=== PATIENT | male | born 1935 | race Caucasian/White ===

== ENCOUNTER 2016-12-24 07:12 | Emergency (ER) | payer MEDICARE, MEDICAID ==
[~2016-12-24 07:12] MED LIST: ADULT LOW DOSE81 MG PO; ASA CHILDREN'S81 MG PO; ASCORBIC ACID500 MG PO; AUGMENTIN 875-1 EACH PO; AZITHROMYCIN250 MG PO; CARVEDILOL3.125 MG PO; CLOPIDOGREL75 MG PO; FLAGYL500 MG PO; FLOMAX DPS0.4 MG PO; HUMALOG 50100 UNITS/ SQ; HUMALOG100 UNIT/1 SQ; IRON325 MG PO; LAMISIL250 MG PO; LANTUS SQ; LANTUS100 UNITS/ SQ; LASIX DPS20 MG PO; LASIX40 M1 PO; LIPITOR80 MG PO; MAALOX DPS30 ML PO; MILK OF MAGNESI10 ML PO; NOVOLOG FL100 UNIT/1 SQ; NOVOLOG100 UNIT/2 SQ; OMEPRAZOLE20 MG PO; OMNICEF DPS300 MG PO; OXY IR DPS5 MG PO; PLAVIX75 MG PO; PRILOSEC DPS20 MG PO; RESTASIS1 EACH OU; SENOKOT S1 TAB PO; TYLENOL DPS325 MG PO; ULTRAM DPS50 MG PO; VITAMIN C500 M1 PO; XARELTO10 MG PO; ZESTRIL10 MG PO
--- NOTE | 2016-12-25 12:11 | ER ---
ADMIT: 12/24/2016 RM/LOC: ER [facility] MR#: [id number] [address] [address] VILLATOROSUZY QUINTANA [address] [place] [address] *CELL Emergency Room Report SEX: M AGE: 81 : 1935 DATE: HISTORY OF PRESENT ILLNESS: An 81-year-old gentleman, who became gradually confused this morning while he was out running and was found on the side of the road in his car confused. He does have a history of diabetes, insulin dependent. He was found to have a low glucose by squad, given a doughnut, felt much better, subsequently transferred here for evaluation. See T-sheet for history and physical. The patient is diagnosed with a diabetic reaction hypoglycemia, much improved by the time of his arrival in the hospital and subsequently discharged. DIAGNOSIS: Hypoglycemia diabetic reaction. PLAN: Follow up sometime this coming week if needed. Bharath Miller MD/ alida JOB #: [id number] CC: Bharath Miller MD, Attending Physician
== END 2016-12-24 08:10 | disposition home or self-care (01) ==
LOC: ER 07:12
DX: E11.649 Type 2 diabetes mellitus with hypoglycemia without coma (principal); Z87.891 Personal history of nicotine dependence; Z79.899 Other long term (current) drug therapy

== ENCOUNTER 2016-12-28 17:12 | Inpatient (IN) | payer MEDICARE, MEDICAID ==
[~2016-12-28] VITALS: Ht 160 cm; Wt 79.3 kg
--- NOTE | ~2016-12-28 | ECH ---
Transthoracic Echocardiography Report (TTE) Demographics Patient Name SUZY VILLATORO Date of Study 12/29/2016 Patient Number [id number] Visit Number [id number] Date of 1935 Room Number 512 Accession Number [id number] Gender Male Age 81 year(s) Referring Jamisonjudy Nelsonsean Melba Lap Cutter Truer Operator Ladan Arguello Physician [facility] Sai Rider Physician Interpreting Wale [place] MD Area Representative Physician Bang Milligan MD Supervising Ordering Physician Sai Rider MD/MLP Nurse Stress Country Sales Manager Conclusions Contractility Score Summary Normal Left Ventricular contractility was noted. Summary Technically adequate exam. The estimated left ventricular ejection fraction is 55%. Diastolic assessment reveals Grade I diastolic dysfunction. There is mild aortic regurgitation by color Doppler. Procedure Type of Study TTE procedure:Echo Complete SF. Procedure Date Date: 12/29/2016 Start: 11:07 AM Technical Quality: Adequate visualization Indications:Elevated Troponin, Coronary artery disease, Diabetes, Hypertension and History of CABG. Appropriate Use Criteria: 9 Height: 63 inches Weight: 167 pounds BSA: 1.79 m Rhythm: Within normal limits HR: 72 bpm BP: 142/80 mmHg M-Mode/2D Measurements LV Diastolic Dimension: 4.71 cm LV Systolic Dimension: 3.68 cm LV Septum Diastolic: 0.87 cm LV PW Diastolic: 0.83 cm AO Root Dimension: 2.41 cm Cardiac Output: 3.07 l/min LA Dimension: 3.88 cm Cardiac Index: 1.72 l/min*m RV Diastolic Dimension: 3.89 cm LA volume index: 27 ml/m LVOT: 1.65 cm LVOT VTI: 19.96 cm RV Base: 3 cm LV Stroke volume: 42.66 ml RV Mid: 2 cm LV Stroke volume index: 23.83 ml/m TAPSE: 2.2 cm TDI-S': 12 cm/s Doppler Measurements AV Peak Velocity: 1.2 m/s MV Peak E-Wave: 0.74 m/s AV Peak Gradient: 5.76 mmHg MV Peak A-Wave: 0.83 m/s AV Mean Gradient: 3.34 mmHg MV E/A Ratio: 0.88 LVOT Peak Velocity: 1.01 m/s MV P1/2t: 50.9 msec AV Area (Continuity):1.86 cm AV P1/2t: 512 msec MV Deceleration Time: 157.5 msec TR Velocity:2.4 m/s MV Area (PHT): 4.32 cm TR Gradient:23.04 mmHg PV Peak Velocity: 0.97 m/s Estimated RAP:5 mmHg PV Peak Gradient: 3.73 mmHg Estimated RVSP: 28 mmHg Estimated PASP: 28.04 mmHg E' Septal Velocity: 0.07 m/s A' Septal Velocity: 0.1 m/s E' Lateral Velocity: 0.12 m/s A' Lateral Velocity: 0.09 m/s RA Area: 15.19 cm Findings Left Ventricle Normal left ventricle size and function. Diastolic assessment reveals Grade I diastolic dysfunction. Right Ventricle Normal right ventricle structure and function. Left Atrium Normal left atrial size. Right Atrium Normal right atrial size. Mitral Valve Normal mitral valve structure and function. Mild mitral regurgitation by color Doppler. Aortic Valve The aortic valve is mildly sclerotic. There is mild aortic regurgitation by color Doppler. Tricuspid Valve Normal tricuspid valve structure and function. Mild tricuspid regurgitation by color Doppler. Normal pulmonary pressures. Pulmonic Valve The pulmonic valve is not well visualized. Pericardial Effusion No evidence of pericardial effusion. Miscellaneous Visualized portions of the aortic root and ascending aorta appear normal in size. Pleural Effusion No evidence of pleural effusion. Contractility Score LV regional wall motion:(0-Non visualized 1-Normal 2-Hypokinesis 3-Akinesis 4-Dyskinesis 5-Aneurysm) Signature
--- NOTE | 2016-12-31 12:39 | ER ---
ADMIT: 12/28/2016 RM/LOC: 512 [facility] MR#: [id number] 2620 [facility] [address] [place] [address] SUZY VILLATORO [address] [place] [address] Emergency Room Report SEX: M AGE: 81 : 1935 DATE: 12/28/2016 ADDENDUM: An 81-year-old male, found down by his family. Evidently, he lives by himself. EMS was called. There was a question of carbon monoxide detectors going off when EMS was there. His level here was 4.2, which is a little elevated. He is not a smoker. He has multiple other medical problems. Cardiac disease, diabetes, hypertension, hyperlipidemia. He was here a couple of days ago with a low blood sugar. His blood sugar in the field was 120. He has also had a bypass in the past as well. At this time, his lab is otherwise negative. We did CT his head, negative. Chest x-ray was negative. White count is up a little at 13.2. Chemistry is negative. The one finding that we did find is that his urine looked to be infected. 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 At this time, I spoke with Dr. Germain. She will admit him since we are admitting him as a UTI and syncopal episode with altered mental status. He will be admitted for that, but since he has a known infection, we will add the sepsis protocol which just mainly entails adding a lactic and starting IV antibiotics on him with Levaquin 750 IV down here. His MAP has been well above 65 and he will continue to be evaluated. He actually seems to be clearing more and more while he is here, though I thought he was a little bit confused initially when he came in. CONDITION ON DISCHARGE: Serious, but stable. Ryan Tuttle MD/ alida JOB #: [id number] CC: Tereso Gibbs MD, Attending Physician Tereso Gibbs MD, Family Physician
[2016-12-31] MEDS ORDERED: CARVEDILOL3.125 MG PO (20:41)
[2016-12-31] MEDS ORDERED: ZESTRIL DPS2.5 MG PO (20:41)
[2016-12-31] MEDS ORDERED: LASIX DPS20 MG PO (20:41)
[2016-12-31] MEDS ORDERED: TOUJEO SOL300 UNIT/1 SQ (20:41)
[2016-12-31] MEDS ORDERED: NEURONTIN DPS300 MG PO (20:41)
[2016-12-31] MEDS ORDERED: NOVOLOG100 UNIT/2 SQ (20:42)
[2016-12-31] MEDS ORDERED: ASCORBIC ACID500 MG PO (20:42)
[2016-12-31] MEDS ORDERED: FLOMAX DPS0.4 MG PO (20:42)
[2016-12-31] MEDS ORDERED: PLAVIX75 MG PO (20:42)
[2016-12-31] MEDS ORDERED: PRILOSEC DPS20 MG PO (20:43)
[2016-12-31] MEDS ORDERED: FEOSOL-DPS325 MG PO (20:43)
[2016-12-31] MEDS ORDERED: LIPITOR80 MG PO (20:44)
[2016-12-31] MEDS ORDERED: LIPITOR40 MG PO (20:44)
[2016-12-31] MEDS ORDERED: LEVAQUIN DPS500 MG PO (20:45)
--- NOTE | 2017-01-05 13:25 | HP ---
ADMIT: 12/28/2016 RM/LOC: 512 [facility] MR#: [id number] [address] [address] SUZY VILLATORO [address] [place] [address] History and Physical SEX: M AGE: 81 : 1935 DATE OF SERVICE: CHIEF COMPLAINT: Confusion. HISTORY OF PRESENT ILLNESS: The patient is an 81-year-old, male, who was admitted through the emergency room with confusion. It sounds like he has been running some errands and got back home and decided to leave his car out and clean out the garage. There were some pretty strong fumes from some power steering fluid that was leaking and he started feeling dizzy as he was cleaning the garage. He ended up crawling around to the front as he felt too dizzy to walk and the door from the garage to the house was locked. He was on his way to the front door, that his daughter and ended up finding him. He does live alone, nobody else had been in the house or the garage with him prior to this. There was some concern about possible carbon monoxide poisoning when the ambulance came to pick him up, and he did have just a very mildly elevated carboxyhemoglobin level. He thinks the episode was more associated with some fumes he was smelling though. He said he has been getting more dizzy off and on though recently. Had a check up with Dr. Gibbs last week, and he has been doing his insulin as scheduled, but says the sugars this week had been fine without any significant lows. The highest he has had is 226, but usually it is in the one teens to 120s. He denies any chest pain or feeling short of breath or diaphoretic with this episode. Has had a recent coronary artery bypass grafting about a year and half ago, but has had no issues with his heart since then. He has not been feeling sick otherwise. Denies having any dysuria or flank pain. No fevers or chills or other illnesses recently. PAST MEDICAL HISTORY: The patient has type 2 diabetes and is insulin dependent, complicated by diabetic peripheral neuropathy and neuropathic pain. He also has coronary artery disease and has had coronary artery bypass grafting. He has hyperlipidemia, hypertension, gastroesophageal reflux, and anemia. No prior history of significant renal disease. Has a history of osteoarthritis with right total knee arthroplasty. Has had some issues with mildly elevated postvoid residuals and urinary retention. Also, has had some falls in the past. MEDICATIONS: 1. Atorvastatin 80 mg at bedtime. 2. Gabapentin 300 mg b.i.d. 3. Lisinopril 2.5 mg daily. 4. Carvedilol 3.125 mg b.i.d. 5. Furosemide 20 mg daily. 6. Toujeo 20 units daily. 7. Clopidogrel 75 mg daily. 8. NovoLog 7 units t.i.d. with meals. 9. Tamsulosin 0.4 mg daily. 10.Vitamin C 500 mg daily. 11.Ferrous sulfate 325 mg b.i.d. 12.Omeprazole 20 mg daily. ADMIT: 12/28/2016 RM/LOC: 512 [facility] MR#: [id number] [address] [place] [id number] [place] [address] History and Physical SEX: M AGE: 81 : 1935 ALLERGIES: NO KNOWN DRUG ALLERGIES. SOCIAL HISTORY: The patient again lives alone independently. He denies any significant tobacco, alcohol, or drug use. He is a former smoker. FAMILY HISTORY: Significant for cancer and diabetes. REVIEW OF SYSTEMS: CONSTITUTIONAL: The patient just felt generally weak today and dizzy. HEENT: No headaches or vision changes or cold symptoms. CARDIAC: No chest pain or palpitations. RESPIRATORY: No shortness of breath or cough. GI: No abdominal pain, nausea, vomiting, or change in stools. : Does have some urinary retention issues in the past, but feels like he has been going fairly normally for him without any dysuria. No flank pain. MUSCULOSKELETAL: Has chronic joint pains, but much better since his knee replacement. Denies taking any medications for pain at home. ENDOCRINE: Diabetes as above. Rest of the review of systems is negative. PHYSICAL EXAMINATION: VITAL SIGNS: The patient is afebrile, blood pressure is 151/55, pulse 85, respirations 16, sats are 97% on room air. GENERAL: He is alert and oriented x3, and in no acute distress. HEENT: Head is atraumatic, normocephalic. Sclerae are round. Pupils are equal, round, and reactive to light and accommodation. Oropharynx looks moist. NECK: Supple with no lymphadenopathy or thyromegaly. HEART: Regular in rate and rhythm without murmurs. LUNGS: Sound clear to auscultation bilaterally. ABDOMEN: Soft, nondistended, nontender with good bowel sounds. EXTREMITIES: Have no edema. No posterior calf tenderness and he has 1+ dorsalis pedis pulses. No focal neurologic deficits are noted. LABORATORY DATA: White count 13.7, hemoglobin 12.0, BUN 32, creatinine 1.8, glucose was 101, troponin I 0.040, CK was mildly elevated at 606. UA is 3+ leukocyte esterase, 2+ blood, 1+ protein. IMAGING: Chest x-ray showed no acute changes. Head CT was negative. Urine drug screen was negative. Coags were normal. TSH was normal. His EKG shows normal sinus rhythm with just an old infarct, but no suspicious looking changes. ASSESSMENT: 1. Encephalopathy with falls, possibly due to just the urinary tract infection or possible contribution by carbon monoxide or other fumes. 2. Urinary tract infection. 3. Acute renal failure. ADMIT: 12/28/2016 RM/LOC: 512 [facility] MR#: [id number] [address] [address] [place] [address] History and Physical SEX: M AGE: 81 : 1935 4. Dehydration. 5. Elevated CK. 6. Urinary retention. 7. Coronary artery disease. 8. Hypertension. 9. Hyperlipidemia. PLAN: The patient has been started on some IV fluids, and we will give him Levaquin for the UTI and recheck labs in the morning. He is already feeling quite a bit better, so we will see how he does with PT and OT in the morning to make sure he is safe to return home. May need to check out his home for some artificial carbon monoxide testing as well before discharge. We will recheck his CK and troponin in the morning. Make any changes as needed based on his clinical course. Jeana Germain MD/ alida JOB #: [id number] CC: Tereso Gibbs, Attending Physician Tereso Gibbs, Family Physician
--- NOTE | 2017-01-28 12:32 | CO ---
ADMIT: 12/28/2016 RM/LOC: 512 [facility] MR#: [id number] [address] [address] SUZY VILLATORO [address] [place] [id number] Consultation SEX: M AGE: 81 : 1935 DATE OF CONSULTATION: 12/29/2016 ATTENDING PHYSICIAN: Tereso Gibbs CONSULTING PHYSICIAN: Michelle Swift MD REASON FOR CONSULTATION: Elevated troponin, history of coronary artery disease. HISTORY OF PRESENT ILLNESS: Suzy is an 81-year-old male who was admitted yesterday with confusion. He had been working in his garage and somehow fell. He was found later by his after he had crawled inside of the house, it is unknown how long he was in this confused state. On admission, he was found to have a UTI and acute kidney injury. His CK and MB are elevated. Today,his troponin came back elevated at 0.102 whereas it was 0.040 yesterday. He currently denies having any chest pain or increased shortness of breath. He denies having any palpitations or current lightheadedness. He states that his main problem right now is his diabetes. His cardiac history is significant for coronary artery disease status post a 3-vessel bypass in October 2014. His last echocardiogram performed in February 2015 revealed a normal ejection fraction at 55% to 60%. He does have other cardiovascular risk factors including hypertension, hyperlipidemia, previous tobacco abuse, and diabetes. 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 Further medical history consists of hyperlipidemia, hypertension, gastroesophageal reflux, and anemia. He has coronary artery disease status post coronary artery bypass grafting in October 2014, 3 vessel. He also has osteoarthritis. PAST SURGICAL HISTORY: He has had both knees replaced, the right one 8 months ago and left 2 years ago, 3-vessel coronary artery bypass grafting in October 2014. MEDICATIONS: Current medications are: 1. Coreg. 2. Feosol. 3. Flomax. 4. Lipitor. 5. Neurontin. 6. Plavix. 7. Protonix. 8. Vitamin C. 9. Levemir. 10.NovoLog. 11.Levaquin. ALLERGIES: NO KNOWN DRUG ALLERGIES. ADMIT: 12/28/2016 RM/LOC: 512 [facility] MR#: [id number] [address] [address] [place] [address] Consultation SEX: M AGE: 81 : 1935 FAMILY HISTORY: Significant for a brother and 1 daughter with diabetes. His mother of cancer at age 50, he has 1 sister with cancer. His father at age of 39 due to homicide. SOCIAL HISTORY: He is a retired clerical warehouse worker, he worked on the [employer] for 31 years. He is from his , but they maintain a good relationship. He states he drinks 1 cup of coffee per day and denies use of alcohol. Denies use of illegal drugs. He does have a 15 pack year history of tobacco abuse, he states he quit 20 years ago. REVIEW OF SYSTEMS: GENERAL: Denies fatigue, fever, chills, sweats, rash, or weight loss. EYES: Denies double vision, but does state he has decreased vision and thinks he has glaucoma. Denies cataracts. THROAT, MOUTH, AND EARS: Some hearing loss, denies problems with nose, mouth or throat. PULMONARY: Denies cough, sputum production, asthma, emphysema or bronchitis. Denies fatigue upon awakening. Does admit to snoring and wakes up once each night. GASTROINTESTINAL: Denies heartburn or difficulty swallowing. No change in bowel habits. Denies dark or bloody stools. No history of ulcers, hiatal hernia, or gallbladder or liver disease. GENITOURINARY: Denies dysuria or hematuria. Does have problems with urinary tract infection and urinary retention. MUSCULOSKELETAL: Positive for history of arthritis. Denies gout. ENDOCRINE: Denies history of thyroid dysfunction. Positive for diabetes. HEMATOLOGIC: Denies history of anemia, easy bruising, or cancer. NEUROLOGIC: Denies chronic headaches, dizziness, syncope, stroke, seizures or numbness or tingling. PSYCHIATRIC: Denies history of mental illness or feelings of depression. PHYSICAL EXAMINATION: VITAL SIGNS: Today blood pressure 142/80, pulse 87, respirations 16, temperature 97.8, and O2 sat 99% on room air. SKIN: [place], warm, and dry. EYES: Sclerae clear. No xanthelasmas. ENT: Oral mucosa is pink and moist. No jugular venous distention or carotid bruits. CHEST: Respirations are even and unlabored. Lungs are clear to auscultation. HEART: Regular rate and rhythm. Normal S1, S2. No murmurs, rubs or gallops. ABDOMEN: Soft and nontender. MUSCULOSKELETAL: Gait is normal. EXTREMITIES: Peripheral pulses palpable. No clubbing, cyanosis or edema. PSYCHIATRIC: Alert and oriented. Mood and affect are appropriate. LABORATORY DATA: Hemoglobin 12.4, hematocrit 38.5, and WBC 8.8. BUN 31, creatinine 1.6, glucose 205. Urine culture positive for gram-negative rods. ADMIT: 12/28/2016 RM/LOC: 512 [facility] MR#: [id number] [address] [place] [id number] [place] [address] Consultation SEX: M AGE: 81 : 1935 2, was 606 yesterday. MB 30.9, was 5.2 yesterday. Troponin 0.102, was 0.040 yesterday. EKG performed yesterday revealed sinus rhythm, old anterolateral infarct. ASSESSMENT: 1. Elevated troponin, question cardiac versus rhabdomyolysis. 2. Encephalopathy with fall. 3. Acute kidney injury. 4. History of coronary artery disease status post coronary artery bypass graft in 2014 with normal ejection fraction afterwards. PLAN: Suzy appears much better than his chart depicts. He is having no chest pain or acute shortness of breath. His pulse is regular and he is in a normal rhythm. We will recommend to continue his current medications including beta-caroline, aspirin, Plavix, and statin if that is okay with his primary care physician. An echocardiogram was performed this morning, and we are waiting those results. If his ejection fraction is normal, we will proceed with a stress test before he his discharged. If the ejection fraction is decreased, then we will proceed with catheterization. For now, he appears well and we will continue to follow closely. RG Lawler Student / Michelle Swift MD / alida JOB #: [id number] CC: Tereso Gibbs, Attending Physician Tereso Gibbs, Family Physician
--- NOTE | 2017-02-07 07:41 | DS ---
ADMIT: 12/28/2016 RM/LOC: 512 [facility] MR#: [id number] [address] [address] VILLATOROSUZY QUINTANA [address] [place] [address] General Discharge Summary SEX: M AGE: 81 : 1935 ADMISSION DATE: 12/28/2016 DISCHARGE DATE: 12/31/2016 FINAL DIAGNOSES: 1. Acute encephalopathy. 2. Urinary tract infection, Escherichia coli. 3. Rhabdomyolysis. 4. Elevated troponin. 5. Acute kidney injury, prerenal. 6. Diabetes mellitus type 2. 7. Hypertension. 8. Coronary artery disease/coronary artery bypass graft. 9. Urinary retention. CONSULTATIONS: Cardiology. LABS AND IMAGING: Refer to hospital record. REASON FOR ADMISSION: Please refer to dictated H and P by Dr. Germain. Briefly, a pleasant 81-year-old male, found by significantly confused. Was in the middle of his yard. Apparently been in his garage, smelled some fume, could not really remember what happened. Did have a slightly elevated carboxyhemoglobin level when he came in. The patient does not recall any chest pains or other significant symptoms. Was admitted for further workup and management. HOSPITAL COURSE: The patient was admitted to telemetry. Routine orders. The patient improved significantly within 24 hours. The day after admission, the patient was back to baseline from a cognitive standpoint. He did have an elevated troponin and CK. Cardiology was consulted. Ultimately, they felt doing an outpatient stress test would be best for further evaluation as he was asymptomatic. The patient did have urinary tract infection, grew out E. coli. He was treated for this. By day of discharge, the patient was much improved, ADMIT: 12/28/2016 RM/LOC: 512 [facility] MR#: [id number] 2620 [facility] [address] [place] [id number] SUZY VILLATORO [address] [place] [address] General Discharge Summary SEX: M AGE: 81 : 1935 feeling much better. We did have to adjust his insulin somewhat as he was having some lower blood sugars during the hospitalization. There were no other acute events during hospitalization. The patient was in stable condition on discharge. DISCHARGE MEDICATIONS: Please refer to hospital record. DISCHARGE INSTRUCTIONS: The patient was instructed to follow up with Dr. Gibbs in 1 week. Take medications as prescribed. Follow up with electronic musical instrument repairer as instructed. Follow up sooner if needed. Discharge activities took approximately 35 minutes. Tereso Gibbs MD/ saral JOB #: [id number] CC: Tereso Gibbs MD, Attending Physician Tereso Gibbs MD, Family Physician
== END 2016-12-31 14:21 | disposition home health service (06) | DRG 689 ==
LOC: ER 17:12 → 5MS 18:45
PROVIDERS: ADMIT Family Medicine
DX: N39.0 Urinary tract infection, site not specified (principal); G93.40 Encephalopathy, unspecified; N17.9 Acute kidney failure, unspecified; M62.82 Rhabdomyolysis; I24.8 Other forms of acute ischemic heart disease; E86.0 Dehydration; E11.42 Type 2 diabetes mellitus with diabetic polyneuropathy; I10 Essential (primary) hypertension; E78.5 Hyperlipidemia, unspecified; I25.10 Atherosclerotic heart disease of native coronary artery without angina pectoris; B96.20 Unspecified Escherichia coli [E. coli] as the cause of diseases classified elsewhere; H91.90 Unspecified hearing loss, unspecified ear; R33.9 Retention of urine, unspecified; N40.1 Benign prostatic hyperplasia with lower urinary tract symptoms; R33.8 Other retention of urine; K21.9 Gastro-esophageal reflux disease without esophagitis; M19.90 Unspecified osteoarthritis, unspecified site; Z91.81 History of falling; Z79.4 Long term (current) use of insulin; Z95.1 Presence of aortocoronary bypass graft; T58.91XA Toxic effect of carbon monoxide from unspecified source, accidental (unintentional), initial encounter; Z87.891 Personal history of nicotine dependence; Z96.653 Presence of artificial knee joint, bilateral; Z79.02 Long term (current) use of antithrombotics/antiplatelets

== ENCOUNTER 2017-01-15 20:17 | Inpatient (IN) | payer MEDICARE, MEDICAID ==
[~2017-01-15] VITALS: Ht 160 cm; Wt 76.1 kg
[~2017-01-15 20:17] MED LIST changes: +FEOSOL-DPS325 MG PO; +LEVAQUIN DPS500 MG PO; +LIPITOR40 MG PO; +NEURONTIN DPS300 MG PO; +TOUJEO SOL300 UNIT/1 SQ; +ZESTRIL DPS2.5 MG PO
--- NOTE | 2017-01-16 00:02 | ER ---
ADMIT: 01/15/2017 RM/LOC: ER [facility] MR#: [id number] [address] [address] SUZY VILLATORO [address] [place] [address] Emergency Room Report SEX: M AGE: 81 : 1935 DATE: 01/15/2017 CHIEF COMPLAINT: Altered level of consciousness. HISTORY OF PRESENT ILLNESS: The patient is an 81-year-old male with history of hypoglycemia, associated type 2 diabetes, frequent hospitalizations for hypoglycemia, chronic kidney disease, and previous UTI, was found by Martin Villalobos, unresponsive in car, initially thought to be asleep. When he returned, found the patient again unresponsive in the car, called 911. Police responded and dispatched EMS. By the time EMS arrived, this was approximately 55 minutes from time of initial witnessing patient unresponsive in car. Blood sugar was 36, was given amp of D50, slowly responded on arrival. Review of systems unreliable due to what appears to be chronic cognitive delay and/or dementia. The patient does have rhonchitic cough. PAST MEDICAL HISTORY: ILLNESSES: Coronary artery disease, CHF, previous DC, crystal dysrhythmias, type 2 diabetes, on insulin. Hypertension, hyperlipidemia, peripheral neuropathy, GERD, stage 3 chronic kidney disease, previous UTI, anemia of chronic disease, DJD of the knees, urinary retention with BPH. OPERATIONS: Coronary artery bypass in 2015, most recent heart cath in 2013 showed triple-vessel disease, right total knee arthroplasty. ALLERGIES: NONE. MEDICATIONS: Please see nurse's MAR. SOCIAL HISTORY: , lives alone, 26-pack a year history of smoking, quit approximately 15 years ago. No illicit drugs or alcohol. FAMILY HISTORY: Positive for diabetes, cancer. Review of systems, most recent echo 1st of the month showing EF of 55%, grade 1 diastolic dysfunction, otherwise 12-point review of systems negative for all other systems, illnesses, or operations except as outlined above. PHYSICAL EXAMINATION: VITAL SIGNS: Temp 93, pulse 53, respirations 18, BP 156/71, SaO2 of 100% on room air. GENERAL: Cool, diaphoretic, obtunded. HEENT: Normocephalic. No evidence of epistaxis, rhinorrhea, or otorrhea. NECK: Supple without lymphadenopathy or thyromegaly. CHEST: Breath sounds equal with rhonchitic cough. HEART: Bradycardic rhythm without murmur, gallop, or edema. ABDOMEN: Soft, nontender, nondistended. Slightly obese. Bowel sounds hypoactive. BACK: No CVA tenderness. EXTREMITIES: No evidence of Homans sign, synovitis, or dermatitis. NEURO: No lateralizing signs. NIH stroke scale 0 to 1 due to slight slurring of words. ADMIT: 01/15/2017 RM/LOC: [facility] MR#: [id number] [address] [place] [address] Emergency Room Report SEX: M AGE: 81 : 1935 MEDICAL DECISION MAKING: The patient was hypothermic on arrival. Taqueria Hugger was applied. Warm fluids. Accu-Chek showed sugars 134, given sandwich and ambulated in Emergency Department. Chest x-ray shows possible early right lower lobe infiltrate. Normal CBC, CMP. BN peptide 1512, troponin 0.019. CRP less than 0.29. Carboxyhemoglobin 1.4. Procalcitonin less than 0.05. ABG shows pH 7.38, pCO2 of 37.1, PO2 of 40, INR 1.09, lactic 0.9. Tox screen negative. UA negative. EKG shows sinus bradycardia with nonspecific interventricular conduction delay, left axis deviation, unchanged from December 28, 2016. The patient was covered with Levaquin 500 mg IV piggyback. Notified Dr. Germain of admission, and likely retirement placement. Dr. Leiva evaluated and wrote orders in department. DIAGNOSES: 1. Hypoglycemic reaction due to insulin. 2. Developing right lower lobe pneumonia. 3. Hypothermia. RECOMMENDATION: Admit inpatient telemetry for Dr. Gibbs. ADMISSION/DISCHARGE CONDITION: Stable. Patient is a full code. Stevan Smart MD/ modl JOB #: [id number] CC: Stevan Smart MD, Attending Physician Tereso Gibbs MD, Family Physician Tereso Gibbs MD
--- NOTE | 2017-01-28 06:29 | HP ---
ADMIT: 01/15/2017 RM/LOC: 432 [facility] MR#: [id number] [address] [address] SUZY VILLATORO [address] [place] [address] History and Physical SEX: M AGE: 81 : 1935 DATE OF SERVICE: CHIEF COMPLAINT: Altered mental status and hypoglycemia. HISTORY OF PRESENT ILLNESS: The patient is an 81-year-old male, who was found unresponsive in his car by passerby. Per EMS report, the patient was noted to be sitting in his vehicle at the end of a end, and when the passerby returned back in approximately 30 minutes, he was noted to still be in the same spot and therefore, EMS was contacted. Once paramedics were on the scene, he was found to have a blood sugar of 36 and to be hypothermic with a temperature of 93.0 Fahrenheit. Blood sugar responded quickly to an amp of D50 and was greater than 200 upon arrival to the emergency room. He was initially unresponsive, but mentation improved to verbal status, though he was still repetitive at times and not able to provide a full history. His ex-, whom he has good relationship with, reports that he called after he went to [employer] this morning for breakfast. Then at about 5:00 p.m., he went to the pharmacy to picker feeder his medications and the next contact he had was with the paramedics. He reports he thinks he ate beans with crackers for lunch today, though he does not remember this evening to know if he had, for example, any symptoms of hypoglycemia or took his medications incorrectly. He reports he remembers awakening this morning and having a blood sugar of 111 and believes he just took his scheduled insulin as he does on a typical day, but he is unable to confirm this. In the ER, he denies any headache, chest pain, shortness of breath, cough, recent nausea, vomiting, diarrhea, or peripheral edema. He reports that he feels well at this time. His ex- reports that his mental status is not quite back to baseline, and she reports he seemed to be in his normal health and mentation when they spoke this morning. She suspects irregular oral intake with adherence to rigid insulin schedule as the cause of this episode. PAST MEDICAL HISTORY: Insulin-dependent type 2 diabetes mellitus, coronary artery disease, status post 3-vessel CABG in 2014, hypertension, hyperlipidemia, and gastroesophageal reflux disease, chronic kidney disease, benign prostatic hypertrophy, osteoarthritis, status post bilateral total knee replacements. MEDICATIONS: 1. Toujeo 20 units daily. 2. NovoLog 7 units t.i.d. with meals. 3. Atorvastatin 80. 4. Clopidogrel 75 mg p.o. daily. 5. Tamsulosin 0.4 mg p.o. daily. 6. Ferrous sulfate 325 mg p.o. b.i.d. 7. Gabapentin 300 mg p.o. b.i.d. 8. Lisinopril 2.5 mg p.o. daily. 9. Vitamin C 500 mg p.o. daily. 10.Omeprazole 20 mg p.o. daily. 11.Furosemide 20 mg p.o. daily. 12.Carvedilol 3.125 mg p.o. b.i.d. ADMIT: 01/15/2017 RM/LOC: 432 [facility] MR#: [id number] [facility] [address] [address] [place] [address] History and Physical SEX: M AGE: 81 : 1935 ALLERGIES: NO KNOWN MEDICAL ALLERGIES. SOCIAL HISTORY: The patient currently lives alone and receives home health care. He has discussed difficulties with medication compliance in the office with his primary care physician, Dr. Gibbs, which is why he receives home health care. His ex- lives few houses down the street and they have daily contact. He is a former tobacco user with a 15 pack-year history and quit more than 20 years ago. Denies any alcohol or illicit drug use. FAMILY HISTORY: Positive for type 2 diabetes mellitus and cancer. REVIEW OF SYSTEMS: A 10-point review systems was completed and negative except as noted in the HPI. PHYSICAL EXAMINATION: VITAL SIGNS: 156/61, pulse 54, respiratory rate 18, SpO2 of 100% on room air. Temperature 93.0 degrees Fahrenheit. GENERAL: The patient is awake and alert. He is oriented to person and place. HEENT: Head is normocephalic and atraumatic. Pupils are equal, round, and reactive to light. Mucous membranes are moist. NECK: Supple. No JVD is appreciated. HEART: Bradycardic, but regular rhythm without appreciable murmur. LUNGS: Clear to auscultation bilaterally without wheezes, rhonchi, or rales. ABDOMEN: Soft, nontender to palpation. Bowel sounds are present. EXTREMITIES: Without peripheral edema. NEURO: The patient has spontaneous movement of all 4 extremities with a symmetric facies. PSYCH: Appropriate mood and affect. OBJECTIVE DATA: White blood cell count 5.9, hemoglobin 11.1, platelets 159, creatinine 1.2 from a baseline of 1.44. CK 165, MB 5.1, troponin 0.019, proBNP 1512. Procalcitonin less than 0.05. Urine drug screen negative. UA within normal limits. Carboxyhemoglobin negative. Chest x-ray with stable cardiomegaly. No acute pathology. EKG, sinus bradycardia with a rate of 49. ASSESSMENT: 1. Severe hypoglycemia. 2. Altered mental status. 3. Hypothermia. 4. Sinus bradycardia. 5. Coronary artery disease. ADMIT: 01/15/2017 RM/LOC: 432 [facility] MR#: [id number] [address] [address] [place] [address] History and Physical SEX: M AGE: 81 : 1935 6. Type 2 diabetes mellitus. 7. Chronic kidney disease. 8. Hypertension. 9. Benign prostatic hypertrophy. PLAN: At this time, it is unclear etiology of the hypoglycemia, but there is no overt signs or symptoms of infection, acute coronary syndrome, or known medication overdose. Blood and urine cultures were collected upon admission. We will continue the Taqueria Hugger until the patient is normothermic. His mental status is much improved from presentation and hope for continued improvement. We will consider MoCA or other cognitive screening and social work consult for safety at home. Will ask diabetes education to work with the patient and appreciate their impression on his capacity to care for his diabetes at home. Luda Leiva MD Resident / Jeana Germain MD / modl JOB #: [id number] CC: Tereso Gibbs, Attending Physician Tereso Gibbs, Family Physician
--- NOTE | 2017-02-10 09:09 | DS ---
ADMIT: 01/15/2017 RM/LOC: 432 [facility] MR#: [id number] [address] [address] SUZY VILLATORO [address] [place] [id number] General Discharge Summary SEX: M AGE: 81 : 1935 ADMISSION DATE: 01/15/2017 DISCHARGE DATE: 01/18/2017 ADMISSION DIAGNOSIS: Metabolic encephalopathy secondary to hypoglycemia. SECONDARY DIAGNOSES: 1. Iatrogenic hypoglycemia. 2. Hypothermia. 3. Sinus bradycardia. 4. Coronary artery disease. 5. Diabetes mellitus type 2 with nephropathy. 6. Chronic kidney disease. 7. Hypertension. 8. BPH. CONSULTATIONS: None. PROCEDURES: None. HISTORY OF PRESENT ILLNESS: The patient was brought to the ER by EMS and he was found unresponsive in his car. A passerby had noticed him at the end of history in a parked car and when the passerby walked by again in 30 minutes, he noticed he had not moved and contacted the EMS. When the paramedics gone to the scene, he was found have blood sugar of 36 with hypothermic with temperature of 93.0 Fahrenheit. His hypoglycemia resolved quickly with an amp of D50. The patient remembers drive into the pharmacy and based on the route of where his vehicle was found, it seems that he might have gone confused on the way home and passed his house driving to the end of the street. He denied any recent fevers or chills, nausea, vomiting, diarrhea, cough, shortness of breath or chest pain. HOSPITAL COURSE: With resolution of the hypoglycemia, the patient returned to his baseline mental status. A [employer] was used to assist with warming and the patient was normal thermic in the 1st 12 hours of admission. No underlying cause for hypoglycemia such as infection or other pathology was found. Diabetes education was consulted and does seem that this patient has been adherent to his insulin regimen, but has erratic eating schedule. Speech Pathology completed some cognition studies and documented that his cognition is 9/30, not sure on what scale, but would be consistent with dementia. It was also observed that the last 2 hospital admissions for similar issues have been while the patient was driving home from the pharmacy and perhaps having medications delivered would prevent another episode. The patient was also told to keep glucose tabs in his car and was again educated on the signs of hypoglycemia. On observation by nursing, the patient was able to dose his insulin correctly and his regimen was decreased to Toujeo 15 units daily and NovoLog 5 units t.i.d. with meals. CONDITION AT DISCHARGE: Stable. ADMIT: 01/15/2017 RM/LOC: 432 [facility] MR#: [id number] [address] [place] [id number] [place] [address] General Discharge Summary SEX: M AGE: 81 : 1935 DISPOSITION: Home with home health care through [facility] at home. DISCHARGE MEDICATIONS: 1. Coreg 3.125 mg p.o. b.i.d. 2. Ferrous sulfate 325 mg p.o. b.i.d. 3. Flomax 0.4 mg p.o. daily. 4. Lasix 20 mg p.o. daily. 5. Lipitor 80 mg p.o. at bedtime. 6. Neurontin 300 mg p.o. b.i.d. 7. Plavix 75 mg p.o. daily. 8. Omeprazole 20 mg p.o. daily. 9. Vitamin C 500 mg p.o. daily. 10.Zestril 2.5 mg p.o. daily. 11.Toujeo 15 units subcutaneously daily. 12.NovoLog 5 units subcutaneously t.i.d. with meals. Follow up on January 26 at 1:[address] Gibbs. Luda Leiva MD Resident / Jeana Germain MD / alida JOB #: [id number] CC: Tereso Gibbs MD, Attending Physician Tereso Gibbs MD, Family Physician
== END 2017-01-18 10:23 | disposition home health service (06) | DRG 637 ==
LOC: ER 20:17 → 4PCU 22:30
PROVIDERS: ADMIT Family Medicine
DX: E11.649 Type 2 diabetes mellitus with hypoglycemia without coma (principal); G93.41 Metabolic encephalopathy; T68.XXXA Hypothermia, initial encounter; I50.9 Heart failure, unspecified; I13.0 Hypertensive heart and chronic kidney disease with heart failure and stage 1 through stage 4 chronic kidney disease, or unspecified chronic kidney disease; E11.22 Type 2 diabetes mellitus with diabetic chronic kidney disease; R00.1 Bradycardia, unspecified; N18.3 Chronic kidney disease, stage 3 (moderate); I25.10 Atherosclerotic heart disease of native coronary artery without angina pectoris; E78.5 Hyperlipidemia, unspecified; E11.42 Type 2 diabetes mellitus with diabetic polyneuropathy; K21.9 Gastro-esophageal reflux disease without esophagitis; D63.8 Anemia in other chronic diseases classified elsewhere; N40.1 Benign prostatic hyperplasia with lower urinary tract symptoms; R33.8 Other retention of urine; Z96.653 Presence of artificial knee joint, bilateral; I25.2 Old myocardial infarction; Z95.1 Presence of aortocoronary bypass graft; Z79.4 Long term (current) use of insulin; Z87.891 Personal history of nicotine dependence